=== PATIENT | female | born 1975 | race Two or more races ===

== ENCOUNTER 2017-09-23 15:52 | Emergency (ER) | payer MEDICAID ==
[2017-09-23 16:03] VITALS: BP 127/81; RESP 16; TEMP 98.1
--- NOTE | 2017-09-23 16:45 | EDPHY ---
H & P Stated Complaint: right leg pain and decreased sensation since yesterday 11pm Time Seen by Provider: 09/23/17 16:08 HPI/ROS: CHIEF COMPLAINT: Leg pain HISTORY OF PRESENT ILLNESS: This is a healthy 42-year-old female who presents with right leg pain that began last night after working. She works at [employer] and took involves lots of bending and lifting. She describes the pain as sharp. She reports pain that extends from her upper thigh to the knee along the posteriolateral aspect. It is associated with decreased or unusual sensation. She has not had weakness. No bowel or bladder complaints. No trauma. She took ibuprofen at 11:00 p.m. last night and again at 7:00 a.m. this morning (8 hr ago). She has not taken anything else. She did try some arnica cream. The pain has worsened throughout the day and it has become difficult for her to walk due to pain. She has never had pain like this before. She denies back or buttock pain. She does not have calf pain or swelling. No recent travel, no family history of VTE, and no hormones. Malaysian shoveler was used to obtain this history. REVIEW OF SYSTEMS: A ten point review of systems was performed and is negative with the exception of the items mentioned in the HPI. Past medical history: Negative Past surgical history: Negative Family history: Negative for VTE Social history: She works at [employer]. She does not use tobacco products or alcohol. General Appearance: Alert. Vital signs reviewed. Eyes: Pupils equal and round, no conjunctival injection, no discharge. Anicteric. ENT, Mouth: Mucous membranes are moist, no oropharyngeal erythema or edema. Neck: No lymphadenopathy, supple. Respiratory: Lungs are clear to auscultation; no wheezes, rales, or rhonchi. Cardiovascular: Regular rate and rhythm; no murmur, rub, or gallop. Gastrointestinal: Abdomen is soft and nontender, no masses or organomegaly, bowel sounds normal. Skin: Warm and dry, no rashes on exposed skin, normal color. Back: Nontender to palpation over the thoracolumbar spine. No CVAT. Extremities: No lower extremity edema, no calf tenderness or swelling. Negative Homans. No change in pain with passive and active range of motion of her right hip. Neurological: Alert and oriented. Moving all four extremities easily and equally. Strength is 5 over 5 bilaterally with testing of all major motor groups in both lower extremities. Sensation is intact to light touch over both lower extremities. Deep tendon reflexes are 2+ in the biceps and knees bilaterally. Gait is normal. Psychiatric: Normal affect. - Personal History LMP (Females 10-55): 1-7 Days Ago Current Tetanus/Diphtheria Vaccine: No Current Tetanus Diphtheria and Acellular Pertussis (TDAP): No - Medical/Surgical History Hx Asthma: No Hx Chronic Respiratory Disease: No Hx Diabetes: No Hx Cardiac Disease: No Hx Renal Disease: No Hx Cirrhosis: No Hx Alcoholism: No Hx HIV/AIDS: No Hx Splenectomy or Spleen Trauma: No Other PMH: Denies - Social History Smoking Status: Never smoked Constitutional: Initial Vital Signs Temperature (C) 36.7 C 09/23/17 15:57 Heart Rate 73 09/23/17 15:57 Respiratory Rate 16 09/23/17 15:57 Blood Pressure 127/81 H 09/23/17 15:57 O2 Sat (%) 98 09/23/17 15:57 O2 Delivery Mode Room Air Allergies/Adverse Reactions: No Known Allergies Allergy (Unverified 09/23/17 16:03) Home Medications: Medication Instructions Recorded NK [No Known Home Meds] 09/23/17 Medical Decision Making - Diagnostics Imaging Results: Imaging Impressions Extremity Venous Study 09/23/17 16:41 Impression: 1. No deep venous thrombosis right leg. 2. Right Zamarripa's cyst. Findings and recommendations discussed with Emergency Department physician, RUDY FLAHERTY at 17:19 hour, 09/23/2017. Final report concurs with initial preliminary interpretation. ED Course/Re-evaluation: I suspect a lumbar radiculopathy. Patient is concerned about the possibility of a DVT. Right lower extremity ultrasound was performed and is negative for DVT but does show a Zamarripa's cyst. On reexamination she does not have appreciable tenderness behind her knee and I am not certain that the Zamarripa's cyst is the etiology of her pain. I feel that a trial of ibuprofen is a reasonable approach in this setting. She has no significant neurologic findings and I do not recommend additional imaging at this point. I am recommending ibuprofen on a scheduled regular basis for the next 3-4 days. We reviewed the danger signs that should prompt her to be re-evaluated. We discussed lifting with the legs and protecting her back. I am providing a work excuse for ellieorrow. Differential Diagnosis: I considered a differential diagnosis that includes but is not limited to lumbar radiculopathy, DVT, superficial thrombophlebitis, muscle strain, Zamarripa cyst, vascular insufficiency. Departure - Departure Disposition: Home, Routine, Self-Care Clinical Impression: Leg pain, posterior Qualifiers: Laterality: right Qualified Code(s): M79.604 - Pain in right leg Zamarripa's cyst of knee Qualifiers: Laterality: right Qualified Code(s): M71.21 - Synovial cyst of popliteal space [Zamarripa], right knee Condition: Good Instructions: Leg Pain (ED), Bakers Cyst (ED) Additional Instructions: Take ibuprofen (Advil, Motrin, any brand is fine) 400-600 mg every 6 hr with food. Take this on a regular schedule for the next 3-4 days. I am not certain that the Zamarripa's cyst is what is causing your pain. I wonder if you could have pressure on 1 of the nerve roots that supplies her right leg. These nerve roots, off of the spine in the low back. Ibuprofen will treat both kinds of pain. If you have new or concerning symptoms--fever, worsening pain, new numbness, new weakness, trouble controlling your bowels or your bladder--you should be re- evaluated immediately. Please follow up with your primary care doctor, Dr. Edmond. Referrals: Gifty Edmond DO [Doctor of Osteopathy] - As per Instructions Stand Alone Forms: Work Excuse
[2017-09-23 18:13] VITALS: PULSE 75; O2SAT 96
== END 2017-09-23 18:10 | disposition home or self-care (01) ==
LOC: CED 15:52
DX: M71.21 Synovial cyst of popliteal space [Baker], right knee (principal)
CPT/HCPCS: 93971-PO

== ENCOUNTER 2018-11-04 15:19 | Emergency (ER) | payer MEDICAID ==
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
[2018-11-04 18:40] VITALS: BP 123/90
== END 2018-11-04 18:10 | disposition home or self-care (01) ==
LOC: CED 15:19
DX: M54.5 Low back pain (principal); M41.84 Other forms of scoliosis, thoracic region
CPT/HCPCS: 72070-PO; 72100-PO; 99283-ER